=== PATIENT | male | born 1955 | race American Indian/Alaskan Native ===

== ENCOUNTER 2019-08-13 16:30 | Emergency (ER) | payer BC ==
[2019-08-13] MEDS ORDERED: SODIUM CHLORIDE 0.9% 1000 ML 1,000 ML IV ONE (16:59)
--- NOTE | 2019-08-13 17:17 | Emergency Department Report ---
ED Psych HPI - General Chief Complaint: Medical Clearance Stated Complaint: MEDICAL CLEARANCE Time Seen by Provider: 08/13/19 16:59 Source: EMS Mode of arrival: Stretcher Limitations: Other - History of Present Illness Initial Comments: Pt is a 64-year-old male that comes to us from [place] where he is institutionalized for depression. He is going through a divorce process now for a year. He had a gun in his home and was deemed a threat to himself so was placed on a 101[address] and [facility] [place]. He was initially medically cleared by [facility]. CT and MRI at that time were neg for acute process CHARGE NURSE aware of violent tendencies. MHE from [place] 1:1. Restraints for safety Patient is an educated male with prior bipolar tendencies per his daughter. His daughter is a child psychologist who lives in the [facility]. He also has a brother that is a forensic psychologist. PT is on 1013 status per [place]. Patient was sent to the emergency room because he would not speak to his caregivers. He will not eat or drink. He appears catatonic on assessment by psychiatry wanted to make sure there is no physical basis for his symptoms. Pt is speaking to his sister and his mental health caregiver at the bedside. He will not speak with myself. He will not speak with the nurse. Patient is tracking across the room. He is moving all extremities. He has no facial drooping. He has no focal weakness noted on exam. PMH CVA CHRONIC PAIN HTN HPLD BIPOLAR Complaint: feels depressed -: Sudden, hour(s) Associated Psychiatric Symptoms: depression History of same: Yes Treatments Prior to Arrival: placed on mental he, physical restraints - Related Data Allergies Allergy/AdvReac Type Severity Reaction Status Date / Time No Known Allergies Allergy Verified 08/13/19 16:56 ED Review of Systems ROS: Stated complaint: MEDICAL CLEARANCE Other details as noted in HPI Comment: Unobtainable due to pts medical conditions ED Past Medical Hx - Past Medical History Previous Medical History?: Yes Hx CVA: Yes Hx Pulmonary Embolism: No Hx Renal Disease: No Hx Sickle Cell Disease: No Hx Seizures: No Hx Psychiatric Treatment: Yes (depression, physcosis) Hx Tuberculosis: No - Surgical History Past Surgical History?: No ED Physical Exam - General Limitations: Altered Mental Status, Physical Limitation General appearance: alert, in no apparent distress - Head Head exam: Present: atraumatic, normocephalic - Eye Eye exam: Present: normal appearance - ENT ENT exam: Present: mucous membranes moist - Neck Neck exam: Present: normal inspection - Respiratory Respiratory exam: Present: normal lung sounds bilaterally. Absent: respiratory distress - Cardiovascular Cardiovascular Exam: Present: regular rate, normal rhythm. Absent: systolic murmur, diastolic murmur, rubs, gallop - GI/Abdominal GI/Abdominal exam: Present: soft, normal bowel sounds - Rectal Rectal exam: Present: deferred - Extremities Exam Extremities exam: Present: normal inspection - Back Exam Back exam: Present: normal inspection - Neurological Exam Neurological exam: Present: alert, oriented X3 - Psychiatric Psychiatric exam: Present: depressed, other (catatonia) - Skin Skin exam: Present: warm, dry, intact, normal color. Absent: rash ED Course Vital Signs 08/13/19 16:55 Temperature 98.7 F Pulse Rate 78 Respiratory 16 Rate Blood Pressure 132/82 [Left] O2 Sat by Pulse 98 Oximetry ED Medical Decision Making - Lab Data Result diagrams: 08/13/19 17:23 - EKG Data EKG shows normal: sinus rhythm Rate: normal - EKG Data When compared to previous EKG there are: no significant change Interpretation: no acute changes - Radiology Data Radiology results: report reviewed, image reviewed - Medical Decision Making PLANS CT RO ACUTE INTRACRANIAL PROCESS LABS TO RO IDENTIFIABLE MED REASON FOR AMS RESTRAIN PRN DUE Vital Signs 08/13/19 16:55 Temperature 98.7 F Pulse Rate 78 Respiratory 16 Rate Blood Pressure 132/82 [Left] O2 Sat by Pulse 98 Oximetry Labs 08/13/19 08/13/19 08/13/19 17:23 17:25 17:26 WBC 8.6 RBC 5.52 H Hgb 16.4 H Hct 47.0 H MCV 85 MCH 30 MCHC 35 H RDW 14.0 Plt Count 240 Sodium 141 Potassium 4.0 Chloride 102.9 Carbon Dioxide 23 Anion Gap 19 BUN 20 Creatinine 0.8 Estimated GFR > 60 BUN/Creatinine Ratio 25 Glucose 112 H Calcium 9.7 Total Bilirubin 0.90 AST 18 ALT 22 Alkaline Phosphatase 111 Troponin T < 0.010 Total Protein 8.0 Albumin 4.6 Albumin/Globulin Ratio 1.4 labs noted 1L NS given in ER CT pending PLAN 1. PENDING A NEG HEAD CT- DC BACK TO [facility] MEDICALLY CLEARED - Differential Diagnosis catonia Critical care attestation.: If time is entered above; I have spent that time in minutes in the direct care of this critically ill patient, excluding procedure time. ED Disposition Clinical Impression: Depression, Medical clearance for psychiatric admission Disposition: DC-01 TO HOME OR SELFCARE Is pt being admited?: No Does the pt Need Aspirin: No Condition: Stable Additional Instructions: return to psychiatric care for evaluation of catonia/depression Referrals: [facility] [Outside] - 3-5 Days Time of Disposition: 17:53
[2019-08-13 17:41] LABS: Hemoglobin 16.4 gm/dl (11.8-15.2); Mean Corpuscular HGB Conc 35 % (32-34); Mean Corpuscular Volume 85 fl (84-94); Platelet Count 240 K/mm3 (140-440); Red Blood Count 5.52 M/mm3 (3.65-5.03)
[2019-08-13 18:00] LABS: Alanine Aminotransferase 22 units/L (7-56); Albumin 4.6 g/dL (3.9-5); BUN/Creatinine Ratio 25; Blood Urea Nitrogen 20 mg/dL (9-20); Calcium 9.7 mg/dL (8.4-10.2); Hemolysis Index 23
--- NOTE | 2019-08-13 20:19 | Cat Scan Report ---
CT head/brain wo con INDICATION / CLINICAL INFORMATION: 64 years Male; ams. TECHNIQUE: Routine CT head without contrast. All CT scans at this location are performed using CT dos e reduction for ALARA by means of automated exposure control. COMPARISON: None. FINDINGS: BRAIN / INTRACRANIAL CONTENTS: No acute hemorrhage, mass effect, midline shift, hydrocephalus, or acu te, large territorial infarct. Lacune is seen in the left basal ganglia. It has same CT density has C SF. This is chronic lacune. No significant white matter abnormality. 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 Mild cortical involution is seen. CRANIOCERVICAL JUNCTION: No significant abnormality. ORBITS: No significant abnormality of visualized orbits. SINUSES / MASTOIDS: No significant abnormality of the visualized paranasal sinuses or mastoid air surekha ls. ADDITIONAL FINDINGS: None. IMPRESSION: I do not see an acute parenchymal lesion in the brain. Signer Name: Vijaya Karimi MD Signed: 08/13/2019 8:14 PM Workstation Name: [id number]
[2019-08-13 23:29] VITALS: BP 148/90
== END 2019-08-13 22:45 | disposition home or self-care (01) ==
LOC: ED 16:30
DX: F32.9 Major depressive disorder, single episode, unspecified (principal); Z86.73 Personal history of transient ischemic attack (TIA), and cerebral infarction without residual deficits; F29 Unspecified psychosis not due to a substance or known physiological condition
CPT/HCPCS: 36415; 70450; 80053; 84484; 85027; 93005; 93010; 96360; 96361; 99285; J7030